=== PATIENT | female | born 1970 | race Caucasian/White ===

== ENCOUNTER → 2017-06-18 | Outpatient (CLI) | payer OTHER ==
--- NOTE | 2017-06-21 13:26 | Diagnostic Imaging Report ---
Bilateral screening mammogram 2D views with tomosynthesis The current study was also evaluated with a Computer Aided Detection (CAD) system. Indication: Screening. No current complaints stated on the questionnaire. COMPARISON: 05/24/2016. Findings: The breasts are composed of scattered parenchymal densities. Stable bilateral circumscribed nodules are likely are due to intramammary lymph nodes. Allowing for technique and positional differences, no suspicious change is seen. IMPRESSION: No significant change. ACR BI-RADS Category 2: Benign findings. Result letter will be mailed to the patient. Note: At least 10% of breast cancer is not imaged by mammography. Dictated by: Dictated on workstation # [id number]
== END ==
LOC: RAD 15:40
PROVIDERS: ATTEND Obstetrics & Gynecology
DX: Z12.31 Encounter for screening mammogram for malignant neoplasm of breast (principal)
CPT/HCPCS: 77067

== ENCOUNTER → 2018-08-16 | Outpatient (CLI) | payer OTHER ==
--- NOTE | 2018-08-16 16:55 | Diagnostic Imaging Report ---
INDICATION: Routine screening. COMPARISON: 06/18/2017 and 05/27/2016. TECHNIQUE: 2D and 3D bilateral screening mammography was performed with CAD. FINDINGS: Scattered fibroglandular densities are identified bilaterally. Nodular densities in the central slightly outer right breast are less prominent on today's study. No new mass or malignant appearing microcalcifications are seen. The axillae are unremarkable. IMPRESSION: No mammographic features suspicious for malignancy are identified. ACR BI-RADS Category 2: Benign findings. Result letter will be mailed to the patient. Note: At least 10% of breast cancer is not imaged by mammography. Dictated by: Dictated on workstation # [id number]
== END ==
LOC: RAD 07:53
PROVIDERS: ATTEND Midwife
DX: Z12.31 Encounter for screening mammogram for malignant neoplasm of breast (principal)
CPT/HCPCS: 77067

== ENCOUNTER 2019-04-28 09:42 | Outpatient (CLI) | payer OTHER ==
[~2019-04-28] VITALS: Ht 170 cm; Wt 102.2 kg
[2019-04-28] MEDS ORDERED: LEVO1TAB48 PO (10:52)
[2019-04-28] MEDS ORDERED: VALA500T PO (10:52)
== END 2019-04-28 11:31 | disposition home or self-care (01) ==
LOC: PREOP 09:42
PROVIDERS: ATTEND Internal Medicine
DX: Z01.818 Encounter for other preprocedural examination (principal)

== ENCOUNTER 2019-05-22 12:10 | Outpatient (CLI) | payer OTHER ==
[~2019-05-22] VITALS: Ht 170 cm; Wt 102.9 kg
[~2019-05-22 12:10] MED LIST: LEVO1TAB48 PO; VALA500T PO
[2019-05-22 12:35] VITALS: BP 152/86
[2019-05-22 12:55] LABS: BASOPHILS # (AUTO) 0.1 10^3/uL (0.0-0.1); BASOPHILS % (AUTO) 0 % (0-10); EOSINOPHILS # (AUTO) 0.2 10^3/uL (0.0-0.3); EOSINOPHILS % (AUTO) 2 % (0-10); HEMATOCRIT 38 % (35-52); HEMOGLOBIN 12.7 G/DL (11.5-16.0); LYMPHOCYTES # (AUTO) 2.8 X 10^3 (1.0-4.0); LYMPHOCYTES % (AUTO) 23 % (12-44); MEAN CORPUSCULAR HGB CONC 33 G/DL (32-36); MEAN CORPUSCULAR VOLUME 92 FL (80-99); MEAN PLATELET VOLUME 10.4 FL (7.4-10.4); MONOCYTES # (AUTO) 0.6 X 10^3 (0.0-1.0); MONOCYTES % (AUTO) 5 % (0-12); NEUTROPHILS # (AUTO) 8.4 X 10^3 (1.8-7.8); NEUTROPHILS % (AUTO) 70 % (42-75); PLATELET COUNT 398 10^3/uL (130-400); RED CELL DISTRIBUTION WIDTH 13.4 % (10.0-14.5)
[2019-05-22 12:57] LABS: MEAN CORPUSCULAR HEMOGLOBIN 30 PG (25-34)
== END 2019-05-22 15:30 | disposition home or self-care (01) ==
LOC: PREOP 12:10
PROVIDERS: ATTEND Obstetrics & Gynecology
DX: Z01.812 Encounter for preprocedural laboratory examination (principal); N85.2 Hypertrophy of uterus; N92.0 Excessive and frequent menstruation with regular cycle
CPT/HCPCS: 36415; 85025; 86850; 86900; 86901; 87081

== ENCOUNTER → 2020-02-02 | Outpatient (CLI) | payer OTHER ==
[~2020-02-02] MED LIST changes: +DOCU-143 PO; +ESTR1TAB27 PO; +IBUP-1780 PO; +OXYC1TAB87 PO; -VALA500T PO; +VALA500T7 PO
--- NOTE | 2020-02-02 10:26 | Diagnostic Imaging Report ---
Digital mammogram. Indication: Bilateral screening. The study was compared to the prior exams of 08/16/2018 and 06/18/2017. At this time there are no current complaints. The current study was also evaluated with a Computer Aided Detection (CAD) system. FINDINGS: There are scattered fibroglandular densities in both breasts which could obscure a lesion. Overall, there does not appear to have been any significant change when compared to the prior exam. No primary or secondary sign of malignancy is noted. IMPRESSION: There is no radiographic evidence for malignancy. ACR BI-RADS Category 1: Negative. Result letter will be mailed to the patient. Note: At least 10% of breast cancer is not imaged by mammography. Dictated by: Dictated on workstation # [id number]
== END ==
LOC: RAD 07:13
PROVIDERS: ATTEND Obstetrics & Gynecology
DX: Z12.31 Encounter for screening mammogram for malignant neoplasm of breast (principal)
CPT/HCPCS: 77063; 77067

== ENCOUNTER → 2022-06-17 | Outpatient (CLI) | payer OTHER ==
--- NOTE | 2022-06-17 12:13 | Diagnostic Imaging Report ---
Indication: Routine screening Comparison is made with prior mammogram 02/02/2020 and 08/16/2018. 2-D and 3-D bilateral screening mammography was performed with CAD. CAD is utilized. The current study was also evaluated with a Computer Aided Detection (CAD) system. Scattered fibroglandular densities are identified bilaterally. There is a density in the upper right breast centrally on the MLO view which appears more prominent than prior exams. No definite correlate on the CC view is seen. There is also density in the medial aspect of left breast mid depth on the CC view. No correlate on the MLO view is identified. No suspicious microcalcifications are seen. Axillae are unremarkable. IMPRESSION: BI-RADS 0 Bilateral breast densities. Additional views are recommended for further evaluation. ACR BI-RADS Category 0: Incomplete. (Needs additional imaging evaluation). Result letter will be mailed to the patient. Note: At least 10% of breast cancer is not imaged by mammography. Dictated by: Dictated on workstation # [id number]
== END ==
LOC: RAD 08:46
PROVIDERS: ATTEND Obstetrics & Gynecology
DX: Z12.31 Encounter for screening mammogram for malignant neoplasm of breast (principal); N63.10 Unspecified lump in the right breast, unspecified quadrant; N63.20 Unspecified lump in the left breast, unspecified quadrant
CPT/HCPCS: 77063; 77067

== ENCOUNTER → 2022-07-17 | Outpatient (CLI) | payer OTHER ==
--- NOTE | 2022-07-17 14:27 | Diagnostic Imaging Report ---
INDICATION: Bilateral breast densities. Patient presents for additional views. Correlation is made with screening mammogram from 06/17/2022. Bilateral 2-D and 3-D diagnostic mammography was performed with CAD. This included spot compression views and 90 degree lateral views bilaterally. Right breast: Additional views show persistent density in the upper and outer aspect of the right breast approximately 5 to 6 cm from the nipple. This may represent a fibroid glandular tissue but evaluation of this area with ultrasound is recommended. Left breast: Additional views show a persistent density in the lower inner left breast approximately 7-8 cm from the nipple. This may represent a fibroglandular tissue as well but further evaluation ultrasound is recommended. IMPRESSION: BI-RADS 0 Persistent densities bilaterally. Further evaluation with ultrasound is recommended and will be performed today. ACR BI-RADS Category 0: Incomplete. (Needs additional imaging evaluation). Result letter will be mailed to the patient. Note: At least 10% of breast cancer is not imaged by mammography. Dictated by: Dictated on workstation # [id number]
--- NOTE | 2022-07-17 18:21 | Diagnostic Imaging Report ---
INDICATION: Bilateral breast densities. COMPARISON: Correlation is made with the screening mammogram from 06/17/2022 and diagnostic mammogram from 07/17/2022. EXAMINATION: Sonographic interrogation of the right and left breast was performed. FINDINGS: There is a small cyst at the 7:00 location of left breast, 5 cm from the nipple, measuring 6 mm x 2 mm x 4 mm. This could possibly represent the mammographic density. No abnormality on the right is identified. No solid masses are seen. IMPRESSION: No concerning sonographic findings are identified. Patient may return to routine annual screening mammography. ACR BI-RADS Category 2: Benign findings. Result letter will be mailed to the patient. Note: At least 10% of breast cancer is not imaged by mammography. Dictated by: Dictated on workstation # [id number]
== END ==
LOC: RAD 13:17
PROVIDERS: ATTEND Obstetrics & Gynecology
DX: R92.2 Inconclusive mammogram (principal)
CPT/HCPCS: 76642; 77066; G0279; 77062